=== PATIENT | male | born 1985 | race Caucasian/White ===

== ENCOUNTER 2017-01-06 18:48 | Emergency (ER) | payer MEDICAID ==
[2017-01-06] MEDS ORDERED: NO HOME MEDICATION XX (19:17)
[2017-01-06 19:30] LABS: URINE BILIRUBIN NEGATIVE (NEG); URINE BLOOD MODERATE (NEG); URINE GLUCOSE (UA) NEGATIVE (NEG); URINE KETONE NEGATIVE (NEG); URINE LEUKOCYTE ESTERASE POSITIVE (NEG); URINE NITRITE NEGATIVE (NEG); URINE PROTEIN MODERATE (NEG); URINE SPECIFIC GRAVITY 1.015 (1.003-1.030)
[2017-01-06] MEDS ORDERED: VIBRAMYCIN100 M1 PO (19:34)
[2017-01-06 19:40] LABS: URINE COLOR YELLOW
[2017-01-06 19:41] LABS: URINE APPEARANCE CLOUDY
[2017-01-06 19:55] LABS: URINE AMORPHOUS 2+; URINE WBC 15-20 /[HPF] (0-5)
[2017-01-06 19:56] LABS: URINE BACTERIA 3+; URINE EPITHELIAL CELLS 0 /[HPF] (0-10)
== END 2017-01-06 20:02 ==
LOC: EDMED 18:48
PROVIDERS: Emergency Medicine
DX: N34.2 Other urethritis (principal)
CPT/HCPCS: J0696